=== PATIENT | female | born 1975 | race Caucasian/White ===

== ENCOUNTER 2018-01-01 06:53 | Day surgery (SDC) | payer OTHER | END 2018-01-01 11:40 | disposition home or self-care (01) | LOC: CIR.AMB 06:53 | DX: G56.02 Carpal tunnel syndrome, left upper limb (principal) ==

== ENCOUNTER 2019-01-07 06:10 | Day surgery (SDC) | payer OTHER ==
[~2019-01-07 06:10] MED LIST: LISINOPRIL2.5 MG PO
== END 2019-01-07 11:10 | disposition home or self-care (01) ==
LOC: CIR.AMB 06:10 → EDSTATUS 08:15 → CIR.AMB 08:15 → SURH 08:15 → CIR.AMB 09:30
DX: G56.01 Carpal tunnel syndrome, right upper limb (principal)